=== PATIENT | male | born 1990 | race Caucasian/White ===

== ENCOUNTER 2019-01-28 14:02 | Emergency (ER) | payer MEDICAID ==
[~2019-01-28] VITALS: Ht 180.3 cm; Wt 81.6 kg
[2019-01-28 14:40] VITALS: BP 118/63
--- NOTE | 2019-01-28 14:46 | NUR ---
[facility]
--- NOTE | 2019-01-28 15:23 | NUR ---
PT AMBULATED TO BED 2
[2019-01-28] MEDS ORDERED: DICYCLOMINE HCL LIQUID 10 MG/5 ML UDC PO ONE (15:30)
[2019-01-28] MEDS ORDERED: LACTULOSE 20 GM/30 ML UDC PO ONE (15:30)
--- NOTE | 2019-01-28 15:45 | NUR ---
BIB SELF. AAO X4 C/O PERIUMBILICAL PULSATING PAIN 7/10 X 2 DAYS, NO BM X 3 DAYS. NO OTC MEDS. LAST FOOD TAKEN LAST NIGHT. PMH:DM MED RX: METFORMIN ALLERGIES: DENIES
[2019-01-28] MEDS ORDERED: KETOROLAC 60 MG/2 ML VIAL IM ONE (16:00)
[2019-01-28 16:29] LABS: APPEARANCE,URINE CLEAR (CLEAR); BILIRUBIN,URINE NEGATIVE (NEGATIVE); BLOOD, URINE NEGATIVE (NEGATIVE); COLOR,URINE YELLOW (YELLOW); LEUKOCYTE ESTERASE ,URINE NEGATIVE (NEGATIVE); NITRITE, URINE NEGATIVE (NEGATIVE); UGLUCOSE NEGATIVE (NEGATIVE)
[2019-01-28 16:36] LABS: BARBITURATE, URINE NEG. ng/ml (NEG <=200); BENZODIAZEPINE, URINE NEG. ng/mL (NEG <=200); CANNABINOID, URINE POS. ng/mL (NEG <=50); COCAINE, URINE NEG. ng/mL (NEG <=300); OPIATE, URINE NEG. ng/mL (NEG <=2000); PHENCYCLIDINE SCREEN,URINE NEG. ng/mL (NEG <=25)
[2019-01-28 17:30] VITALS: BP 115/61
--- NOTE | 2019-01-28 17:30 | NUR ---
Patient discharged with v/s stable. Written and verbal after care instructions given and explained. Patient alert, oriented and verbalized understanding of instructions. Ambulatory with steady gait. All questions addressed prior to discharge. ID band removed. Patient advised to follow up with PMD. Rx of BENTYL 20 MG, COLACE given. Patient educated on indication of medication including possible reaction and side effects. Opportunity to ask questions provided and answered.
== END 2019-01-28 17:30 | disposition home or self-care (01) ==
LOC: MED 14:02
DX: F12.90 Cannabis use, unspecified, uncomplicated (principal); R14.3 Flatulence; K59.00 Constipation, unspecified; E11.9 Type 2 diabetes mellitus without complications
CPT/HCPCS: 74018; 80305; 81003; 82948; 99284; Q0092; J1885

== ENCOUNTER 2020-05-26 17:37 | Emergency (ER) | payer BC, MEDICAID ==
[~2020-05-26] VITALS: Ht 180.3 cm; Wt 87.3 kg
[2020-05-26 17:47] VITALS: BP 156/76
--- NOTE | 2020-05-26 18:19 | NUR ---
29 YEAR OLD MALE COMPLAINS OF LOWER ABDOMINAL PAIN X TODAY. PT ALSO STATES HE HAS NAUSEA, BUT NO VOMIT/DIARRHEA. PT STATES SOME BLOOD IN STOOL. PT AOX4, BREATHING EVEN AND UNLABORED, SKIN WARM AND DRY. BED IN LOWEST POSITION, LOCKED, BED RAIL UPX1. PMH - DM2 ALLERGIS - NKA
[2020-05-26 18:32] LABS: BASOPHILS % (AUTO) 0.7 % (0.0-2.0); EOSINOPHILS % (AUTO) 0.1 % (0.0-4.0); HEMATOCRIT 42.1 % (36-52); HEMOGLOBIN 14.6 g/dL (12.0-18.0); LYMPHOCYTES # (AUTO) 0.9 K/uL (2.0-11.5); LYMPHOCYTES % (AUTO) 17.8 % (20.5-51.1); MEAN CORPUSCULAR HEMOGLOBIN 32 pg (27-31); MEAN CORPUSCULAR HGB CONC 35 g/dL (33-37); MEAN CORPUSCULAR VOLUME 92.2 fL (80-94); MONOCYTES # (AUTO) 0.5 K/uL (0.8-1.0); MONOCYTES % (AUTO) 9.4 % (1.7-9.3); NEUTROPHILS # (AUTO) 3.5 K/uL (1.8-7.7); PLATELET COUNT (AUTO) 230 K/uL (140-450); RED BLOOD CELL COUNT(AUTO) 4.57 MIL/uL (4.20-6.10); WHITE BLOOD COUNT (AUTO) 4.9 K/uL (4.8-10.8)
--- NOTE | 2020-05-26 18:40 | NUR ---
NURSE WOODS CHAPERONED DR KHOURY FOR RECTAL EXAM FOR PT.
[2020-05-26 18:46] LABS: ANION GAP 17.3 (8-16); CARBON DIOXIDE 23.3 mmol/L (21-32); CREATININE 0.9 mg/dL (0.6-1.3); POTASSIUM 3.6 mmol/L (3.5-5.1)
[2020-05-26 18:53] LABS: ALBUMIN 4.6 g/dL (3.4-5.0); BILIRUBIN,DIRECT 0.2 mg/dL (0.0-0.3); TOTAL BILIRUBIN 0.6 mg/dL (0.0-1.0)
[2020-05-26 18:54] LABS: PROTHROMBIN TIME 9.7 secs (10.8-13.4)
--- NOTE | 2020-05-26 19:07 | NUR ---
Patient taken to CT scan via wheelchair by tech.
--- NOTE | 2020-05-26 19:16 | NUR ---
RECEIVED REPORT FROM LEANDRA WOODS FOR CONTINUATION OF CARE
--- NOTE | 2020-05-26 19:24 | NUR ---
REPORT GIVEN TO MATHIEU MOBLEY, TRANSFER OF CARE AT THIS TIME
--- NOTE | 2020-05-26 19:32 | NUR ---
Back from CT via wheelchair
--- NOTE | 2020-05-26 20:28 | NUR ---
Provided pt with a cup of water, pt stated pain is 7/10. ERMD made aware.
[2020-05-26] MEDS ORDERED: KETOROLAC 15 MG/ML VIAL IVP ONE ×2 (20:30)
[2020-05-26] MEDS ORDERED: KETOROLAC 15 MG/ML VIAL ONE (20:32)
--- NOTE | 2020-05-26 20:49 | NUR ---
ERMD AT BEDSIDE
--- NOTE | 2020-05-26 21:02 | NUR ---
IV removed, catheter intact and site benign. Applied folded 4x4 gauze and tape to stop bleeding.
[2020-05-26 21:07] VITALS: BP 145/73
--- NOTE | 2020-05-26 21:07 | NUR ---
Patient discharged with v/s stable. Written and verbal after care instructions given and explained. Patient alert, oriented and verbalized understanding of instructions. Ambulatory with steady gait. All questions addressed prior to discharge. ID band removed. Patient advised to follow up with PMD. Rx of MAALOX given. Patient educated on indication of medication including possible reaction and side effects. Opportunity to ask questions provided and answered. Patient provided with labs and CT Scan documents at this time.
[2020-05-26 23:03] LABS: APPEARANCE,URINE CLEAR (CLEAR); BILIRUBIN,URINE NEGATIVE (NEGATIVE); BLOOD, URINE NEGATIVE (NEGATIVE); COLOR,URINE YELLOW (YELLOW); LEUKOCYTE ESTERASE ,URINE NEGATIVE (NEGATIVE); NITRITE, URINE NEGATIVE (NEGATIVE); UGLUCOSE NEGATIVE (NEGATIVE)
== END 2020-05-26 21:07 | disposition home or self-care (01) ==
LOC: MED 17:37
DX: R10.33 Periumbilical pain (principal); E11.9 Type 2 diabetes mellitus without complications; F17.200 Nicotine dependence, unspecified, uncomplicated; F12.90 Cannabis use, unspecified, uncomplicated
CPT/HCPCS: 36415; 74177; 80048; 80076; 81003; 83690; 85025; 85610; 96374; 99285; J1885; Q9967